=== PATIENT | male | born 1985 | race Caucasian/White ===

== ENCOUNTER 2020-12-25 16:38 | Outpatient (CLI) | payer SELFPAY | END 2020-12-25 16:39 | disposition EMS.NT | LOC: EMS 16:38 | DX: R00.0 Tachycardia, unspecified (principal) ==

== ENCOUNTER 2022-05-03 11:51 | Emergency (ER) | payer OTHER ==
--- NOTE | 2022-05-03 13:23 | XRAY Report ---
PROCEDURE: Chest 1 View X-Ray INDICATIONS: Cough with brown phlem TECHNIQUE: One view of the chest was acquired. COMPARISON: None. FINDINGS: Surgical changes and devices: None. Lungs and pleura: No pleural effusions or pneumothorax. Lungs are clear. There is peribronchial cu ffing. Mediastinum: Mediastinal contours appear normal. Heart size is normal. Bones and chest wall: No suspicious bony lesions. Overlying soft tissues appear unremarkable. IMPRESSION: No consolidation or pleural effusions. Peribronchial cuffing suggestive of infectious or reactive bro nchitis. Reviewed by: Olegario Aguilar MD on 05/03/2022 1:21 PM [facility] Approved by: Olegario Aguilar MD on 05/03/2022 1:21 PM [facility] Station ID: [id number]
--- NOTE | 2022-05-03 14:37 | ED Physician Documentation ---
PD HPI URI - Stated complaint Stated Complaint: FEVER - Chief complaint Chief Complaint: Resp - History obtained from History obtained from: Patient - Additional information Additional information: The patient comes to the emergency department with chief complaint of cough and body aches for the last 3 days. He states that he has been coughing up some brownish tinged mucus. No fevers but he has had chills. No specific sick contacts that he knows of. The patient states that his lungs are otherwise healthy except that he smoked until about a year and a half ago and also was vaping for a while. He states its been over a year since he has vape. The patient has not had any residual issues since. He denies any other complaints at this time. He mainly is concerned because he is missing work and is not sure how long he should be out. He is also interested in having something better to help with his cough at home. Review of Systems Ten Systems: 10 systems reviewed and negative Constitutional: reports: Chills, Myalgias Eyes: reports: Reviewed and negative Ears: reports: Reviewed and negative Nose: reports: Reviewed and negative Throat: reports: Reviewed and negative Cardiac: reports: Reviewed and negative Respiratory: reports: Cough GI: reports: Reviewed and negative : reports: Reviewed and negative Skin: reports: Reviewed and negative Musculoskeletal: reports: Reviewed and negative Neurologic: reports: Reviewed and negative Psychiatric: reports: Reviewed and negative Endocrine: reports: Reviewed and negative Immunocompromised: reports: Reviewed and negative PD PAST MEDICAL HISTORY - Present Medications Home Medications: Ambulatory Orders Medication Instructions Recorded Confirmed Benzonatate [Tessalon] 200 mg PO TID PRN #30 cap 05/03/22 Codeine Phosphate/Guaifenesin 5 ml PO Q6H #100 ml 05/03/22 [Codeine-Guaifen 10-100 mg/5 ml] - Allergies Allergies/Adverse Reactions: Allergies Allergy/AdvReac Type Severity Reaction Status Date / Time No Known Drug Allergies Allergy Verified 05/03/22 12:38 PD ED PE NORMAL - Vitals Vital signs reviewed: Yes - General General: Alert and oriented X 3, No acute distress, Well developed/nourished - HEENT HEENT: Atraumatic, PERRL, EOMI, Moist mucous membranes - Neck Neck: Supple, no meningeal sign - Cardiac Cardiac: RRR, No murmur, Strong equal pulses - Respiratory Respiratory: No respiratory distress, Clear bilaterally - Abdomen Abdomen: Soft, Non tender, Non distended - Derm Derm: Normal color, Warm and dry, No rash - Extremities Extremities: No deformity, No edema - Neuro Neuro: Alert and oriented X 3, 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, Normal speech, Other (Grossly intact) - Psych Psych: Normal mood, Normal affect Results - Vitals Vitals: Vital Signs - 24 hr 05/03/22 05/03/22 12:35 14:50 Temperature 36.4 C L 36.5 C Heart Rate 76 72 Respiratory 16 16 Rate Blood Pressure 123/67 120/66 O2 Saturation 98 98 Oxygen O2 Source Room air - Rads (name of study) Chest x-ray Radiology: Final report received, EMP read indepedently, See rad report (Negative) PD MEDICAL DECISION MAKING - ED course Complexity details: reviewed results, re-evaluated patient, considered differential, d/w patient ED course: I discussed with the patient that his chest x-ray is negative, and his lung exam is normal. He is breathing comfortably and has good oxygen saturation on room air, as well. I suspect that he has one of the many viral illnesses that are going around right now. We have discussed Symptomatic management at home, as well as usual indications for return. Departure - Departure Disposition: 01 Home, Self Care Clinical Impression: Viral syndrome Condition: Stable Instructions: ED Viral Syndrome Prescriptions: Codeine Phosphate/Guaifenesin [Codeine-Guaifen 10-100 mg/5 ml] 5 ml PO Q6H #100 ml Benzonatate [Tessalon] 200 mg PO TID PRN #30 cap PRN Reason: Cough Comments: Your chest x-ray is negative, and your lungs are clear. Your oxygen levels are good by pulse oximetry. At this point in time, it is most likely that you have one of the many viral illnesses that are going around right now and causing symptoms such as you have had. In general, these will go away on their own and viruses are not treated with antibiotics. 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 Prescriptions have been electronically transmitted to [facility] pharmacy in [place] your request. Please be sure you are drinking plenty of water and getting fresh air and rest. A work note has been provided for you for the next few days. Please follow-up with your primary care physician as needed. Forms: Activity restrictions
[2022-05-03 14:52] VITALS: BP 120/66
== END 2022-05-03 14:50 | disposition home or self-care (01) ==
LOC: ED 11:51
DX: B34.9 Viral infection, unspecified (principal)
CPT/HCPCS: 99282; 99283

== ENCOUNTER 2022-11-01 11:37 | Emergency (ER) | payer OTHER ==
[2022-11-01 12:03] VITALS: BP 110/57
--- NOTE | 2022-11-01 13:12 | ED Physician Documentation ---
PD HPI OPHTHO - Stated complaint Stated Complaint: EYE IRRITATION - Chief complaint Chief Complaint: Heent - History obtained from History obtained from: Patient - History of Present Illness Timing - onset: How many days ago (several days of congestion, runny nose, some sore throat, and eyes watery, but becoming more matted and crusty in AMs for 2 days.) Timing - duration: Days Timing - details: Gradual onset, Still present Location: Both Quality / character: Burning Associated symptoms: Redness, Matting. No: FB sensation, Photophobia Contributing factors: Recent URI. No: Wears contacts Similar symptoms before: Has not had sx before Recently seen: Not recently seen Review of Systems Constitutional: reports: Chills Eyes: reports: Discharge, Irritation. denies: Photophobia Nose: reports: Rhinorrhea / runny nose, Congestion Throat: reports: Sore throat Respiratory: denies: Cough PD PAST MEDICAL HISTORY - Past Medical History Past Medical History: No - Present Medications Home Medications: Ambulatory Orders Medication Instructions Recorded Confirmed Ketotifen Fumarate [Eye Itch 2 drops EACHEYE QID PRN #5 ml 11/01/22 Relief] Polymyxin B/Trimeth Ophth Drop 2 drops EACHEYE Q3H 4 Days #10 ml 11/01/22 [Polytrim Ophth Drops] dexAMETHasone [Decadron] 4 mg PO DAILY #5 tablet 11/01/22 - Allergies Allergies/Adverse Reactions: Allergies Allergy/AdvReac Type Severity Reaction Status Date / Time No Known Drug Allergies Allergy Verified 05/03/22 12:38 PD ED PE NORMAL - Vitals Vital signs reviewed: Yes - General General: Alert and oriented X 3, No acute distress, Well developed/nourished - HEENT HEENT: PERRL, EOMI (conjunctival hyperemia bilaterally without current discharge. clear nasl discharge. throat without swelling nor exudate. Neck supple without adenopathy.) - Respiratory Respiratory: Clear bilaterally Results - Vitals Vitals: Oxygen O2 Source Room air PD Medical Decision Making - ED course Complexity details: considered differential (has runny nose and congestion, with both eyes irritated and crusty. Having increased crusting of eyes. ), d/w patient ED course: generally having URI wymptoms with eye symptoms too, which presume viral. But having the discharge/matting icnrease the past 2 days. Could have secondary bacterial as well. Will benefit from general decrease of congestion/etc and treating eye with antihistamine too. Departure - Departure Disposition: 01 Home, Self Care Clinical Impression: Congestion of nasal sinus Conjunctivitis Qualifiers: Conjunctivitis type: unspecified Laterality: bilateral Qualified Code(s): H10.9 - Unspecified conjunctivitis Condition: Stable Record reviewed to determine appropriate education?: Yes Instructions: ED Conjunctivitis Nonspecific Prescriptions: dexAMETHasone [Decadron] 4 mg PO DAILY #5 tablet Ketotifen Fumarate [Eye Itch Relief] 2 drops EACHEYE QID PRN #5 ml PRN Reason: Itching Polymyxin B/Trimeth Ophth Drop [Polytrim Ophth Drops] 2 drops EACHEYE Q3H 4 Days #10 ml Comments: Your symptoms could be caused by any or all of the following: Seasonal allergies with the congestion and sore throat and bilateral eye irritation, a viral illness which can cause all of the symptoms as well, and there could also be some development of bacterial conjunctivitis with the eyes worsening. We can treat the eyes with some antibiotic and anti-inflammatory eyedrops to cover that. I would also include antihistamine eyedrops as this may be largely allergy related. Continue with your oral antihistamine. We could add a mild oral steroid for a few days to help with allergies/of viral type inflammation symptoms. I would anticipate improvement over the next few days. Your okay to return to work tomorrow as I would expect improvement in your symptoms and if there is a bacterial component, then your okay to be around others once you are on the antibiotic eyedrops for much of the day. I sent your prescriptions to [facility] pharmacy. It should be open today he will 6 PM. Discharge Date/Time: 11/01/22 14:18
== END 2022-11-01 14:18 | disposition home or self-care (01) ==
LOC: ED 11:37
DX: H10.9 Unspecified conjunctivitis (principal); R09.81 Nasal congestion
CPT/HCPCS: 99281; 99283

== ENCOUNTER 2023-11-27 10:08 | Emergency (ER) | payer OTHER ==
[2023-11-27 10:39] VITALS: O2SAT 99
--- NOTE | 2023-11-27 12:14 | ED Physician Documentation ---
History of Present Illness - Stated complaint Stated Complaint: LT LEG INJURY - Chief complaint Chief Complaint: Ext Problem - History obtained from History obtained from: Patient - History of Present Illness Pain level max: 5 Pain level now: 5 - Additonal information Additional information: Patient is a 38-year-old male who presents to the emergency department stating that he hit his left anterior gonzalez on a metal staircase about a week ago. He sustained a wound to the anterior aspect of the leg. Has been applying Neosporin to this. There is no drainage. He states that he is still having pain in that area and wants to make sure that nothing is broken. Worse with walking, better with rest. He states it tends to swell during the day, the swelling resolves by the morning. He also states that he has toenail fungus on both of his great toenails and his left thumb. He states [id number] medication is not helping. Review of Systems Constitutional: denies: Fever, Chills PD PAST MEDICAL HISTORY - Past Medical History Past Medical History: No - Past Surgical History Past Surgical History: Yes - Present Medications Home Medications: Ambulatory Orders Medication Instructions Recorded Confirmed Ketotifen Fumarate [Eye Itch 2 drops EACHEYE QID PRN #5 ml 11/01/22 Relief] Polymyxin B/Trimeth Ophth Drop 2 drops EACHEYE Q3H 4 Days #10 ml 11/01/22 [Polytrim Ophth Drops] dexAMETHasone [Decadron] 4 mg PO DAILY #5 tablet 11/01/22 Bacitracin Zinc Oint 1 applic TOP BID #1 each 11/27/23 - Allergies Allergies/Adverse Reactions: Allergies Allergy/AdvReac Type Severity Reaction Status Date / Time No Known Drug Allergies Allergy Verified 11/27/23 10:18 - Social History Does the pt smoke?: No Smoking Status: Never smoker - Immunizations Immunizations are current?: Yes PD ED PE NORMAL - Vitals Vital signs reviewed: Yes - General General: Alert and oriented X 3, No acute distress - HEENT HEENT: Moist mucous membranes - Neck Neck: Supple, no meningeal sign - Derm Derm: Warm and dry - Extremities Extremities: Other (LLE - 1cm wound to the lower anterior tibia, mild erythema, no drainage. NVI. no bony tenderness. o/w normal LLE exam. ) - Neuro Neuro: Alert and oriented X 3 - Free text exam Free text exam: nail disruption on the L thumb secondary to nail fungus Results - Vitals Vitals: Vital Signs - 24 hr 11/27/23 11/27/23 10:19 12:58 Temperature 36.5 C 36.4 C L Heart Rate 76 66 Respiratory 16 16 Rate Blood Pressure 134/71 H 150/75 H O2 Saturation 99 99 Oxygen O2 Source Room air - Rads (name of study) L tib fib xray Relevant Findings:: Final report received, See rad report PD Medical Decision Making - ED course Complexity details: reviewed results, re-evaluated patient, considered julia stephens, d/w patient ED course: No acute findings on x-ray of the left tib-fib. No evidence of fracture. No evidence of bony callus formation to suggest healing fracture. Has a small open wound that does not appear infected. Will prescribe bacitracin for this. He is ambulating without difficulty and no noticeable limp. Will have him follow- up with his PCP for further care. Can use Motrin and Tylenol as needed for pain at home. Patient counseled regarding signs and symptoms for which I believe and urgent re-evaluation would be necessary. Patient with good understanding of and agreement to plan and is comfortable going home at this time This document was made in part using voice recognition software. While efforts are made to proofread this document, sound alike and grammatical errors may occur. Patient is also complaining of fungus in his nails that have been present for many years. Recommend that he follow-up with the product manager e commerce regarding this as he has deformation to the nails. Departure - Departure Disposition: 01 Home, Self Care Clinical Impression: Contusion of tibia, Toenail fungus, Open wound Condition: Good Instructions: ED Contusion Lower Ext, ED Wound Care Follow-Up: your,doctor in 1 week for wound check [Other] Pepe Vernon, DPM [Physician No Access] - Prescriptions: Bacitracin Zinc Oint 1 applic TOP BID #1 each Comments: Your x-ray does not show any acute fractures today.Recommend that you place the bacitracin ointment on the wound. You should have a wound check in about 1 week either with your doctor or the walk-in clinic. Recommend that you follow-up with the product manager e commerce regarding the nail fungus. Forms: PCP List Discharge Date/Time: 11/27/23 12:59
[2023-11-27 13:02] VITALS: BP 150/75
--- NOTE | 2023-11-27 13:18 | XRAY Report ---
PROCEDURE: Tib/Fib LT INDICATIONS: pain after blunt injury TECHNIQUE: 2 views of the tibia and fibula were acquired. COMPARISON: None. FINDINGS: Bones: No fractures or dislocations. No suspicious bony lesions. Soft tissues: No suspicious soft tissue calcifications or masses. IMPRESSION: No acute bony abnormality. Reviewed by: Amy Cabrera MD, PhD on 11/27/2023 12:17 PM [facility] Approved by: Amy Cabrera MD, PhD on 11/27/2023 12:17 PM [facility] Station ID: [id number]
== END 2023-11-27 12:59 | disposition home or self-care (01) ==
LOC: ED 10:08
DX: S80.12XA Contusion of left lower leg, initial encounter (principal); W22.03XA Walked into furniture, initial encounter; B35.1 Tinea unguium
CPT/HCPCS: 99283